=== PATIENT | male | born 1955 | race Caucasian/White ===

== ENCOUNTER 2017-08-18 09:23 | Outpatient (CLI) | payer OTHER ==
[~2017-08-18 09:23] MED LIST: AMBIEN10 MG; ATORVASTATIN CA80 MG; AVAPRO150 MG; CIPRO500 MG PO; CLONAZEPAM0.5 MG; ESCITALOPRAM OX20 MG; KETO10TA2 PO; MIRTAZAPINE30 MG; ORPH100T PO; PANTOTHENIC AC500 MG; PROTONIX40 MG
== END 2017-08-18 09:29 | disposition home or self-care (01) ==
LOC: SONOGRAMA 09:23
DX: N20.0 Calculus of kidney (principal)

== ENCOUNTER 2017-08-26 08:20 | Outpatient (CLI) | payer OTHER | END 2017-08-26 17:00 | disposition home or self-care (01) | LOC: SONOGRAMA 08:20 | DX: R10.9 Unspecified abdominal pain (principal) ==

== ENCOUNTER 2018-09-29 07:04 | Outpatient (CLI) | payer OTHER | END 2018-09-29 07:07 | disposition home or self-care (01) | LOC: SONOGRAMA 07:04 → MAMO-SONO 07:15 | DX: R10.13 Epigastric pain (principal) ==

== ENCOUNTER 2019-04-10 09:28 | Outpatient (CLI) | payer OTHER | END 2019-04-10 09:35 | disposition home or self-care (01) | LOC: LAB 09:28 | DX: D51.1 Vitamin B12 deficiency anemia due to selective vitamin B12 malabsorption with proteinuria (principal); I10 Essential (primary) hypertension; E78.2 Mixed hyperlipidemia; D50.8 Other iron deficiency anemias; D51.8 Other vitamin B12 deficiency anemias; D51.0 Vitamin B12 deficiency anemia due to intrinsic factor deficiency; E03.8 Other specified hypothyroidism; E06.3 Autoimmune thyroiditis; R97.0 Elevated carcinoembryonic antigen [CEA]; R97.8 Other abnormal tumor markers; R97.20 Elevated prostate specific antigen [PSA] ==

== ENCOUNTER 2019-05-24 08:30 | Outpatient (CLI) | payer OTHER | END 2019-05-24 08:35 | disposition home or self-care (01) | LOC: SONOGRAMA 08:30 | DX: M25.511 Pain in right shoulder (principal); M75.121 Complete rotator cuff tear or rupture of right shoulder, not specified as traumatic ==

== ENCOUNTER 2019-08-11 10:21 | Outpatient (CLI) | payer OTHER | END 2019-08-11 11:02 | disposition home or self-care (01) | LOC: LAB 10:21 | DX: D51.1 Vitamin B12 deficiency anemia due to selective vitamin B12 malabsorption with proteinuria (principal); I10 Essential (primary) hypertension; E78.2 Mixed hyperlipidemia; D51.3 Other dietary vitamin B12 deficiency anemia; D50.8 Other iron deficiency anemias; D51.8 Other vitamin B12 deficiency anemias; D59.8 Other acquired hemolytic anemias; D59.2 Drug-induced nonautoimmune hemolytic anemia; D59.1 Other autoimmune hemolytic anemias ==

== ENCOUNTER 2019-12-26 08:58 | Emergency (ER) | payer OTHER ==
[~2019-12-26] VITALS: Ht 162.6 cm; Wt 63.5 kg
== END 2019-12-26 12:23 | disposition home or self-care (01) ==
LOC: ER 08:58
DX: N20.0 Calculus of kidney (principal); R31.0 Gross hematuria

== ENCOUNTER 2021-01-17 07:56 | Outpatient (CLI) | payer OTHER | END 2021-01-17 08:13 | disposition home or self-care (01) | LOC: RAD 07:56 → MRI 08:15 → MAMO-SONO 11:00 | PROVIDERS: ATTEND Neuromusculoskeletal Medicine & OMM | DX: R41.3 Other amnesia (principal); R31.1 Benign essential microscopic hematuria; N20.0 Calculus of kidney | CPT/HCPCS: 70551 ==

== ENCOUNTER 2021-04-15 08:58 | Outpatient (CLI) | payer OTHER | END 2021-04-15 09:00 | disposition home or self-care (01) | LOC: RAD 08:58 | PROVIDERS: ATTEND Internal Medicine Geriatric Medicine | DX: I11.9 Hypertensive heart disease without heart failure (principal); R06.02 Shortness of breath ==

== ENCOUNTER 2021-04-17 13:52 | Outpatient (CLI) | payer OTHER | END 2021-04-17 14:00 | disposition home or self-care (01) | LOC: NUCLEAR 13:52 | PROVIDERS: ATTEND Internal Medicine Geriatric Medicine | DX: M81.0 Age-related osteoporosis without current pathological fracture (principal); M15.0 Primary generalized (osteo)arthritis ==

== ENCOUNTER 2021-05-16 09:05 | Outpatient (CLI) | payer OTHER | END 2021-05-16 09:13 | disposition home or self-care (01) | LOC: NUCLEAR 09:05 | PROVIDERS: ATTEND Internal Medicine Hematology & Oncology | DX: I80.221 Phlebitis and thrombophlebitis of right popliteal vein (principal); D51.1 Vitamin B12 deficiency anemia due to selective vitamin B12 malabsorption with proteinuria ==

== ENCOUNTER → 2021-05-23 11:16 | Outpatient (CLI) | payer OTHER | END | disposition home or self-care (01) | LOC: LAB 11:16 | PROVIDERS: ATTEND Otolaryngology Otology & Neurotology | DX: H93.A2 Pulsatile tinnitus, left ear (principal) ==

== ENCOUNTER 2021-05-27 07:43 | Outpatient (CLI) | payer OTHER | END 2021-05-27 07:52 | disposition home or self-care (01) | LOC: TOM 07:43 | PROVIDERS: ATTEND Otolaryngology Otology & Neurotology | DX: R22.1 Localized swelling, mass and lump, neck (principal) | CPT/HCPCS: 70498; Q9965 ==

== ENCOUNTER 2021-07-10 08:21 | Outpatient (CLI) | payer OTHER | END 2021-07-10 08:22 | disposition home or self-care (01) | LOC: LAB 08:21 | PROVIDERS: ATTEND Internal Medicine Geriatric Medicine | DX: D50.8 Other iron deficiency anemias (principal); E03.8 Other specified hypothyroidism; E78.2 Mixed hyperlipidemia; I11.9 Hypertensive heart disease without heart failure; E56.8 Deficiency of other vitamins; N39.0 Urinary tract infection, site not specified; Z12.11 Encounter for screening for malignant neoplasm of colon; R19.5 Other fecal abnormalities; E55.9 Vitamin D deficiency, unspecified; N28.89 Other specified disorders of kidney and ureter; E11.9 Type 2 diabetes mellitus without complications; R79.89 Other specified abnormal findings of blood chemistry; I10 Essential (primary) hypertension; R74.02 Elevation of levels of lactic acid dehydrogenase [LDH]; K76.89 Other specified diseases of liver; D51.8 Other vitamin B12 deficiency anemias; R97.0 Elevated carcinoembryonic antigen [CEA]; R97.8 Other abnormal tumor markers; D51.1 Vitamin B12 deficiency anemia due to selective vitamin B12 malabsorption with proteinuria; D51.3 Other dietary vitamin B12 deficiency anemia ==

== ENCOUNTER 2021-08-19 07:55 | Outpatient (CLI) | payer OTHER | END 2021-08-19 08:01 | disposition home or self-care (01) | LOC: SONOGRAMA 07:55 | PROVIDERS: ATTEND General Practice | DX: K40.90 Unilateral inguinal hernia, without obstruction or gangrene, not specified as recurrent (principal) ==

== ENCOUNTER 2022-01-07 10:21 | Outpatient (CLI) | payer OTHER | END 2022-01-07 10:27 | disposition home or self-care (01) | LOC: LAB 10:21 | PROVIDERS: ATTEND Internal Medicine Hematology & Oncology | DX: D50.8 Other iron deficiency anemias (principal); R79.9 Abnormal finding of blood chemistry, unspecified; I10 Essential (primary) hypertension; R74.02 Elevation of levels of lactic acid dehydrogenase [LDH]; K76.89 Other specified diseases of liver; E55.9 Vitamin D deficiency, unspecified; C25.9 Malignant neoplasm of pancreas, unspecified; R97.8 Other abnormal tumor markers; R97.20 Elevated prostate specific antigen [PSA]; D51.1 Vitamin B12 deficiency anemia due to selective vitamin B12 malabsorption with proteinuria; R78.2 Finding of cocaine in blood ==

== ENCOUNTER 2022-05-12 06:00 | Day surgery (SDC) | payer OTHER ==
[~2022-05-12 06:00] MED LIST changes: +AMLODIPINE BESY10 MG PO; +IRBESARTAN150 MG PO
[2022-05-12] MEDS ORDERED: PERCOCET 5-3251 EACH PO (10:48)
== END 2022-05-12 12:45 | disposition home or self-care (01) ==
LOC: CIR.AMB 06:00
PROVIDERS: ATTEND Surgery
DX: N47.1 Phimosis (principal); N48.89 Other specified disorders of penis; I10 Essential (primary) hypertension

== ENCOUNTER 2022-10-17 15:38 | Emergency (ER) | payer OTHER ==
[~2022-10-17] VITALS: Ht 162.6 cm; Wt 61.2 kg
[~2022-10-17 15:38] MED LIST changes: +PERCOCET 5-3251 EACH PO
== END 2022-10-17 21:30 | disposition home or self-care (01) ==
LOC: ER 15:38
DX: R10.31 Right lower quadrant pain (principal); N13.2 Hydronephrosis with renal and ureteral calculous obstruction; I10 Essential (primary) hypertension

== ENCOUNTER → 2022-10-26 07:08 | Outpatient (CLI) | payer OTHER | END | disposition home or self-care (01) | LOC: LAB 07:08 | PROVIDERS: ATTEND Internal Medicine Hematology & Oncology | DX: N40.0 Benign prostatic hyperplasia without lower urinary tract symptoms (principal); E78.2 Mixed hyperlipidemia; E03.8 Other specified hypothyroidism; I11.9 Hypertensive heart disease without heart failure; D50.8 Other iron deficiency anemias; R79.9 Abnormal finding of blood chemistry, unspecified; R74.02 Elevation of levels of lactic acid dehydrogenase [LDH]; K76.89 Other specified diseases of liver; E55.9 Vitamin D deficiency, unspecified; D59.19 Other autoimmune hemolytic anemia; C25.9 Malignant neoplasm of pancreas, unspecified; R97.8 Other abnormal tumor markers; R97.20 Elevated prostate specific antigen [PSA]; D51.3 Other dietary vitamin B12 deficiency anemia; I80.221 Phlebitis and thrombophlebitis of right popliteal vein ==

== ENCOUNTER → 2022-10-29 | Outpatient (CLI) | payer OTHER | END | disposition home or self-care (01) | LOC: SONOGRAMA 11:21 | PROVIDERS: ATTEND Specialist | DX: N20.0 Calculus of kidney (principal) ==

== ENCOUNTER → 2023-08-17 11:02 | Outpatient (CLI) | payer OTHER | END | disposition home or self-care (01) | LOC: LAB 11:02 | PROVIDERS: ATTEND Neuromusculoskeletal Medicine & OMM | DX: E03.9 Hypothyroidism, unspecified (principal); R41.3 Other amnesia; R41.89 Other symptoms and signs involving cognitive functions and awareness; F03.90 Unspecified dementia, unspecified severity, without behavioral disturbance, psychotic disturbance, mood disturbance, and anxiety; E78.1 Pure hyperglyceridemia; E22.1 Hyperprolactinemia; G62.9 Polyneuropathy, unspecified ==

== ENCOUNTER 2023-08-26 07:14 | Outpatient (CLI) | payer OTHER | END 2023-08-26 07:26 | disposition home or self-care (01) | LOC: MRI 07:14 | PROVIDERS: ATTEND Neuromusculoskeletal Medicine & OMM | DX: R41.3 Other amnesia (principal); D49.6 Neoplasm of unspecified behavior of brain; G40.909 Epilepsy, unspecified, not intractable, without status epilepticus | CPT/HCPCS: 70553 ==

== ENCOUNTER 2023-09-23 07:33 | Outpatient (CLI) | payer OTHER ==
[2023-09-23 08:36] LABS: HEMATOCRIT 40.9 % (39.0-48.0); MEAN CELL VOLUME 90.7 fL (80.0-100.00); MEAN CORPUSCULAR HEMOGLOBIN 31.1 pg (27.00-32.0); MEAN CORPUSCULAR HGB CONC 34.3 g/dl (32.0-36.0); PLATELET COUNT 225 K/uL (150-450); RED BLOOD COUNT 4.51 M/uL (4.00-6.00); RED CELL DISTRIBUTION WIDTH 13.7 % (11.5-14.5)
[2023-09-23 09:12] LABS: ALBUMIN 3.9 gm/dL (3.4-5.0); BILIRUBIN TOTAL 0.55 mg/dL (0.3-1.2); CREATININE SERUM 0.85 mg/dL (0.70-1.30); GFR 89.63; GLOBULINA 3.1 G/DL (2.4-3.5); POTASSIUM 4.11 mEq/L (3.5-5.1)
[2023-09-23 09:27] LABS: % SATURACION 36.2 % (20-50); FERRITIN 102.5 NG/ML (26-388); PROSTATIC SPECIFIC ANTIGEN 2.79 NG/ML (0.010-4.00)
[2023-09-23 10:02] LABS: FOLIC ACID > 20.00 ng/ml (4.78-20); VITAMIN D3 25 HYDROXY 50.07 ng/ml (30-120)
[2023-09-23 13:34] LABS: MANUAL PLATELET COUNT 424
[2023-09-23 13:35] LABS: PLATELET ESTIMATE NORMAL (NORMAL)
[2023-09-24 10:11] LABS: HAPTOGLOBIN 121 mg/dL (32-363)
[2023-09-24 12:08] LABS: CA 19-9 13 U/mL (0-35)
== END 2023-09-23 07:49 | disposition home or self-care (01) ==
LOC: LAB 07:33
PROVIDERS: ATTEND Internal Medicine Hematology & Oncology
DX: D50.8 Other iron deficiency anemias (principal); R79.9 Abnormal finding of blood chemistry, unspecified; I10 Essential (primary) hypertension; R74.02 Elevation of levels of lactic acid dehydrogenase [LDH]; K76.89 Other specified diseases of liver; E55.9 Vitamin D deficiency, unspecified; C25.9 Malignant neoplasm of pancreas, unspecified; R97.8 Other abnormal tumor markers; R79.0 Abnormal level of blood mineral; R97.20 Elevated prostate specific antigen [PSA]; D51.1 Vitamin B12 deficiency anemia due to selective vitamin B12 malabsorption with proteinuria; E78.2 Mixed hyperlipidemia; D51.3 Other dietary vitamin B12 deficiency anemia; I80.221 Phlebitis and thrombophlebitis of right popliteal vein

== ENCOUNTER 2023-11-10 08:56 | Outpatient (CLI) | payer OTHER | END 2023-11-10 09:12 | disposition home or self-care (01) | LOC: MRI 08:56 | PROVIDERS: ATTEND Neuromusculoskeletal Medicine & OMM | DX: M51.26 Other intervertebral disc displacement, lumbar region (principal); M51.36 Other intervertebral disc degeneration, lumbar region; M50.20 Other cervical disc displacement, unspecified cervical region; M50.30 Other cervical disc degeneration, unspecified cervical region; M79.641 Pain in right hand; M79.644 Pain in right finger(s) | CPT/HCPCS: 72141; 72148 ==

== ENCOUNTER → 2024-12-15 07:02 | Outpatient (CLI) | payer OTHER ==
[2024-12-15 08:26] LABS: CREATININE SERUM 0.84 mg/dL (0.70-1.30)
== END | disposition home or self-care (01) ==
LOC: LAB 07:02
PROVIDERS: ATTEND Radiology Diagnostic Radiology
DX: G90.4 Autonomic dysreflexia (principal); R55 Syncope and collapse

== ENCOUNTER 2024-12-18 13:04 | Outpatient (CLI) | payer OTHER | END 2024-12-18 13:06 | disposition home or self-care (01) | LOC: RAD 13:04 | PROVIDERS: ATTEND Orthopaedic Surgery | DX: G90.4 Autonomic dysreflexia (principal); R55 Syncope and collapse; M79.644 Pain in right finger(s); M79.641 Pain in right hand; M25.522 Pain in left elbow | CPT/HCPCS: 70553; 73070; 73120; 73140; Q9965 ==

== ENCOUNTER → 2025-01-11 06:08 | Outpatient (CLI) | payer OTHER ==
[2025-01-11 07:08] LABS: BASO % 0.9 % (0.1-1.2); EOS # 0.34 (0.04-0.54); EOS % 6.3 % (0.7-7.0); HEMATOCRIT 38.7 % (40.1-51.0); HEMOGLOBIN 13.1 g/dL (13.7-17.5); LYMPH # 2.94 (1.18-3.74); LYMPH % 54.2 % (19.3-53.1); MONO # 0.41 (0.24-0.82); MONO % 7.6 % (4.7-12.5); NEUT # 1.67 (1.56-6.13); NEUT % 30.8 % (34.0-71.1); PLATELET COUNT 281 K/uL (163-369); RED BLOOD COUNT 4.23 M/uL (4.63-6.08); RED CELL DISTRIBUTION WIDTH 13.1 % (11.6-14.4)
[2025-01-11 07:39] LABS: % SATURACION 38.3 % (20-50); ALBUMIN 3.6 gm/dL (3.4-5.0); BILIRUBIN TOTAL 0.47 mg/dL (0.3-1.2); CALCIUM 8.9 mg/dL (8.5-10.1); CREATININE SERUM 0.91 mg/dL (0.70-1.30); FERRITIN 156.5 NG/ML (26-388); GFR 82.36; GLOBULINA 3.4 G/DL (2.4-3.5); POTASSIUM 4.53 mEq/L (3.5-5.1); PROSTATIC SPECIFIC ANTIGEN 3.77 NG/ML (0.010-4.00)
[2025-01-11 12:09] LABS: FOLIC ACID > 20.00 ng/ml (4.78-20); VITAMIN D3 25 HYDROXY 39.98 ng/ml (30-120)
[2025-01-12 08:22] LABS: MANUAL PLATELET COUNT 272
== END | disposition home or self-care (01) ==
LOC: LAB 06:08
PROVIDERS: ATTEND Internal Medicine Hematology & Oncology
DX: D51.1 Vitamin B12 deficiency anemia due to selective vitamin B12 malabsorption with proteinuria (principal); I10 Essential (primary) hypertension; E78.2 Mixed hyperlipidemia; D51.3 Other dietary vitamin B12 deficiency anemia; I80.221 Phlebitis and thrombophlebitis of right popliteal vein; E72.11 Homocystinuria